=== PATIENT | male | born 1970 | race African-American/Black ===

== ENCOUNTER 2018-06-20 18:25 | Emergency (ER) | payer SELFPAY ==
[~2018-06-20] VITALS: Ht 180.3 cm; Wt 79.1 kg
[2018-06-20 18:27] VITALS: Ht 180.3 cm; Wt 79.1 kg
[2018-06-20 19:35] VITALS: BP 148/96
== END 2018-06-20 19:36 | disposition home or self-care (01) ==
LOC: D.ER 18:25
DX: M54.31 Sciatica, right side (principal); M62.838 Other muscle spasm; F17.200 Nicotine dependence, unspecified, uncomplicated